=== PATIENT | female | born 1965 | race Asian ===

== ENCOUNTER 2018-08-01 01:51 | Emergency (ER) | payer SELFPAY ==
[~2018-08-01] VITALS: Ht 157.5 cm; Wt 55.8 kg
[2018-08-01 02:16] VITALS: Ht 157.5 cm; Wt 55.8 kg
[2018-08-01 03:24] LABS: microscopic required? YES; urine erythrocyte 3+ (NEGATIVE)
[2018-08-01 04:03] VITALS: BP 138/95
== END 2018-08-01 04:03 | disposition home or self-care (01) ==
LOC: ED 01:51
PROVIDERS: Emergency Medicine
DX: N39.0 Urinary tract infection, site not specified (principal); Z88.2 Allergy status to sulfonamides; Z88.1 Allergy status to other antibiotic agents; Z98.890 Other specified postprocedural states